=== PATIENT | male | born 1960 | race Caucasian/White ===

== ENCOUNTER 2021-05-11 07:51 | Day surgery (SDC) | payer MEDICAID ==
[2021-05-11] MEDS ORDERED: Dextrose 5%-Lactated Ringers 1,000 ML IV SCH (08:30)
[2021-05-11] MEDS ORDERED: Propofol 200 MG/20 ML SDV ONE ×2 (09:12→10:28)
[2021-05-11] MEDS ORDERED: fentaNYL 100 MCG/2 ML SDV ONE (09:12)
[2021-05-11] MEDS ORDERED: Midazolam 1 MG/ML 2 ML SDV ONE (09:12)
--- NOTE | 2021-05-19 12:25 | OR ---
DATE OF PROCEDURE: SURGEON: Ney Richards MD PREOPERATIVE DIAGNOSIS: Positive Cologuard exam. POSTOPERATIVE DIAGNOSES: 1. Single large polyp in distal sigmoid colon. 2. Left colonic diverticulosis. OPERATIVE PROCEDURE: Flexible colonoscopy with polypectomy by snare technique. ANESTHESIA: IV sedation. INDICATIONS FOR PROCEDURE: A 60-year-old male presenting with positive Cologuard test. He does have negative family history of any colonic neoplasia. Plan is to proceed with colonoscopy with biopsies and/or polypectomy as indicated. Potential risks including bleeding and perforation were discussed, and the patient wishes to proceed. DETAILS OF PROCEDURE: The patient was taken to the operating room, placed in a left lateral decubitus position. IV sedation was administered after which the initial digital rectal exam was performed and was unremarkable. The colonoscope was passed into the rectum with retroflexion revealing uncomplicated hemorrhoidal columns. Scope was eventually passed to the level of the cecum. The prep was quite good. Only small amount of liquid stool was present. The patient was noted to have some uncomplicated left colonic diverticulosis. Otherwise, the patient was noted to have a fairly large polyp measuring 1.5 to 2 cm in the distal sigmoid colon. This is on a fairly well defined stalk and was excised flush with the normal-appearing mucosa using cautery snare technique. The polyp did fragment somewhat during manipulation and with multiple small parts, all of which were sent for histologic evaluation. Good hemostasis was noted at the polypectomy site. Scope was then withdrawn. No additional abnormalities were noted and the procedure was then concluded. Await the pathology report. This will likely be a benign polyp. Given the fragmented nature of removal, a followup colonoscopy might be warranted in the range of 2 years. We will await the pathology report and contact the patient regarding the appropriate followup colonoscopy timing. Ney Richards MD /[id number]
== END 2021-05-11 11:41 | disposition home or self-care (01) ==
LOC: JP.SDS 07:51
PROVIDERS: ATTEND Surgery
DX: D12.5 Benign neoplasm of sigmoid colon (principal); K57.30 Diverticulosis of large intestine without perforation or abscess without bleeding; K64.9 Unspecified hemorrhoids; F17.200 Nicotine dependence, unspecified, uncomplicated
CPT/HCPCS: 45385; 88305; J2250; J2704; J3010; J7121

== ENCOUNTER 2024-03-19 09:15 | Day surgery (SDC) | payer MEDICAID ==
[2024-03-19] MEDS ORDERED: Midazolam 1 MG/ML 2 ML SDV ONE (09:54)
[2024-03-19] MEDS ORDERED: fentaNYL 50 MCG/ML SDV ONE (09:54)
[2024-03-19] MEDS ORDERED: Propofol 200 MG/20 ML SDV ONE ×2 (09:54→10:54)
[2024-03-19] MEDS: Lactated Ringers 1,000 ML IV SCH (10:08)
== END 2024-03-19 12:03 | disposition home or self-care (01) ==
LOC: JP.SDS 09:15 → MERGE 10:20 → EDSEX 10:20 → JP.SDS 12:03
PROVIDERS: ATTEND Surgery
DX: Z12.11 Encounter for screening for malignant neoplasm of colon (principal); Z86.0100 Personal history of colon polyps, unspecified; F41.9 Anxiety disorder, unspecified; F17.200 Nicotine dependence, unspecified, uncomplicated
CPT/HCPCS: 00812; 45378; J2250; J2704; J3010; J7120